=== PATIENT | male | born 1970 | race Asian ===

== ENCOUNTER 2019-04-10 17:53 | Emergency (ER) | payer BC ==
[~2019-04-10] VITALS: Ht 172.7 cm; Wt 92.5 kg
[2019-04-10 17:56] VITALS: Ht 172.7 cm; Wt 92.5 kg
[2019-04-10 18:56] LABS: BASOPHIL % 0.6 % (0-2); PLATELET COUNT 138 x10^3mcL (130-400); RED CELL DISTRIBUTION WIDTH 13.5 % (11.5-14.5)
[2019-04-10 19:05] LABS: CALCIUM 8.8 mg/dL (8.5-10.1); CARBON DIOXIDE 25.3 mmol/L (21-32); CHLORIDE SERUM 105 mmol/L (98-107); CREATININE SERUM 1.1 mg/dL (0.7-1.3); GFR1 > 60 mL/min; GLUCOSE SERUM 89 mg/dL (74-106); SODIUM SERUM 141 mmol/L (136-145)
[2019-04-10 19:17] LABS: ALBUMIN 3.9 g/dL (3.4-5.0); ALKALINE PHOSPHATASE 67 U/L (46-116); ALT/SGPT 30 U/L (16-63); AST/SGOT 21 U/L (15-37); BILIRUBIN TOTAL 0.57 mg/dL (0.20-1.00); HDL CHOLESTEROL 42 mg/dL (40-60); MAGNESIUM 2.1 mg/dL (1.8-2.4); T4(THYROXINE) 7.9 ug/dL (4.7-13.3); TOTAL PROTEIN, SERUM 7.3 g/dL (6.4-8.2); TRIGLYCERIDES 59 mg/dL (<150)
[2019-04-10 19:18] LABS: CHOLESTEROL 262 mg/dL (<200); CHOLESTEROL/HDL RATIO 6.2
[2019-04-10 20:54] VITALS: BP 117/74
== END 2019-04-10 20:54 | disposition home or self-care (01) ==
LOC: ED 17:53
PROVIDERS: Emergency Medicine
DX: R07.89 Other chest pain (principal); R00.2 Palpitations; E78.00 Pure hypercholesterolemia, unspecified; Z90.49 Acquired absence of other specified parts of digestive tract
CPT/HCPCS: 36415; 83880; Q0092